=== PATIENT | male | born 2000 | race Caucasian/White ===

== ENCOUNTER 2020-12-12 01:08 | Outpatient (CLI) | payer BC, SELFPAY ==
--- NOTE | 2020-12-12 | DI.MRI_ITS ---
Exam(s) MR LOWER JOINT LT WO EXAM: MR LOWER JOINT LT WO CLINICAL HISTORY: LT KNEE PAIN,H/O PATELLAR SUBLUXATION AND MENISCAL TEAR,SPRAIN,S83.412A TECHNIQUE: Multiplanar multisequence MRI of the knee was performed. COMPARISON: No exams were available for comparison FINDINGS: EFFUSION: There is a large joint effusion. 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 There are septations but n o loose intra-articular body evident within this prominent Tello cyst. Some fluid seen in the opposit e-left side the popliteal fossa is actually in within the popliteus tendon sheath which is a componen t of the lateral collateral ligament complex. MARROW:There is no evidence of fracture, bone contusion, nor osteochondral defects.. There is a smal l benign-appearing bone lesion in the medial femoral condyle measuring 6 x 5 millimeters not associat ed with surrounding edema. This is either small bone cyst or possibly a small enchondroma. PATELLOFEMORAL COMPARTMENT: The quadriceps tendon is intact. The patellar ligament is intact. There is no significant thinning of the retropatellar cartilage. No evidence of fissure nor signific ant chondral defect. No osteochondral defect at this level.There is no intraosseous signal to sugges t recent patellar dislocation. There are no patellar retinacular tears. CRUCIATE LIGAMENTS: The anterior cruciate ligament is intact.The posterior cruciate ligament is intac t. MEDIAL COMPARTMENT/MEDIAL MENISCUS: There is tear in the posterior horn of the medial meniscus which has both horizontal and oblique components. No bucket-handle configuration. Signal abnormality extend s towards the root but there is no tear of the root of the posterior horn. Tear extends towards the a nterior horn which exhibits some extrusion. There are no flipped meniscal fragments.. There are no chondral defects, osteochondral defects, subarticular marrow edema, nor osteophytes evid ent. MEDIAL COLLATERAL LIGAMENT: Sprain signal. No full-thickness tear. LATERAL COMPARTMENT/LATERAL MENISCUS: There is no evidence of lateral meniscal tear.There are no natalie dral defects, osteochondral defects, subarticular marrow edema, nor osteophytes evident. ILIOTIBIAL BAND: Intact LATERAL COLLATERAL LIGAMENT COMPLEX: The fibular collateral ligament is intact. The biceps femoris t endon is intact.There is tenosynovitis of the popliteus tendon but no tear. Also no edema signal with in the popliteus muscle itself. IMPRESSION: 1. Medial meniscal tear is described above. No bucket-handle configuration nor flipped meniscal fragm ents. No overlying nor subjacent bone contusions. No osteochondral defects. There are no tears of the lateral meniscus. 2. Cruciate ligaments appear intact as does the iliotibial band. Sprain signal noted in the MCL 3. There is fluid in the popliteus tendon sheath component of the lateral collateral ligament complex but no tear for of this structure. The fibular collateral ligament and biceps femoris tendon compone nts of the LCL complex are intact. 4. Small benign-appearing bone lesion in the medial femoral condyle which is probably a small enchond julito. There is no surrounding bone edema to suggest that this is an aggressive process. 5. There is a large joint effusion and a prominent septated Tello cyst. The Tello cyst appears ruptur ed in that there is leakage of fluid down the surface of the medial gastrocnemius. DATA REPOSITORY:
== END 2020-12-12 01:28 ==
PROVIDERS: Visit Provider Nurse Practitioner
DX: M25.562 Pain in left knee (principal); S83.412A Sprain of medial collateral ligament of left knee, initial encounter; S83.242A Other tear of medial meniscus, current injury, left knee, initial encounter; M25.462 Effusion, left knee; M66.0 Rupture of popliteal cyst
CPT/HCPCS: 73721

== ENCOUNTER 2021-04-22 08:50 | Emergency (ER) | payer OTHER, SELFPAY ==
[2021-04-22 09:00] VITALS: BP 138/59; PULSE 73; TEMP 36.4; O2SAT 98
--- NOTE | 2021-04-22 09:06 | ED.GENADUL_ITS ---
Discharge Plan Disposition Patient Disposition: HOME Condition: Stable Discharge Details Clinical Impression: Pharyngitis Primary Care Provider: None,None ED Provider: Loida Little Home Meds and New Rx's Prescriptions: No Action No Known Home Meds RF: 0 Discharge Instructions Instructions: Pharyngitis (ED) Additional Instructions: Follow up with primary care provider in 3-5 days. Return to ED sooner if any worsening or concerns. Increase oral fluids. Please take Tylenol or Ibuprofen with food every 4-6 hours as needed for pain and swelling. We will call you comes back positive. Stand Alone Forms: Work Release Discharge Data Discharge Date/Time-TO BE ENTERED AT DEPARTURE: 04/22/21 09:33 Medical Decision Making Rapid strep is negative. Covid swab negative. Patient discharged in hemodynamically stable condition. HPI General Mode of arrival: ambulatory . Date/Time Provider Initiated Documentation: 04/22/21 08:55 . Limitations to Documentation: no limitations . Information obtained by: patient and RN notes reviewed . HPI Narrative: 21-year-old male presents to the ER chief complaint sore throat began yesterday. Denies any fever or trouble breathing. He is requesting a Covid swab. 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 No other associated symptoms. Related Data Home Medications Medication Instructions Recorded Confirmed Unknown [No Known Home Meds] 04/22/21 04/22/21 Allergies Allergy/AdvReac Type Severity Reaction Status Date / Time No Known Allergies Allergy Unverified 04/22/21 09:04 General Stated Complaint: Sorethroat WILTON: 5 Review of Systems ENT Ears, Nose, Mouth, and Throat: Reports as per HPI, Denies dysphagia, Reports sore throat, Denies throat swelling and Denies tongue swelling Gastrointestinal Gastrointestinal: Denies dysphagia Allergic/Immunologic Allergic/Immunologic: Denies throat swelling and Denies tongue swelling [facility] Social History Smoking/Tobacco Use Status: Never Smoking risk assessment performed?: Yes Alcohol Intake: never Drug use: Never Substance use type: does not use Do you feel safe at home: Yes Do you feel safe in your relationship?: Yes Exam Narrative Exam Narrative: Constitutional: Alert and oriented x3. Appears stated age. Normal body habitus. ENT: Bilateral TM's WNL, External ear normal to inspection, no mastoid TTP, swelling, or erythema, Nasal turbinates WNL, no nasal discharge. Normal dentition, Posterior pharynx beefy red, no exudate. Resp: Lungs clear to auscultation bilaterally, no wheezes, rales, or rhonchi. Course Vital Signs Vital signs: Vital Signs Temperature 36.4 C L 04/22/21 09:00 Pulse 73 04/22/21 09:00 Blood Pressure 138/59 L 04/22/21 09:00 Pulse Oximetry 98 04/22/21 09:00 Temperature 36.4 C L 04/22/21 09:00 Temperature Source Temporal Artery Scan 04/22/21 09:00 Pulse 73 04/22/21 09:00 Respiratory Effort Non-Labored 04/22/21 09:02 Blood Pressure 138/59 L 04/22/21 09:00 Blood Pressure Position Sitting 04/22/21 09:00 Pulse Oximetry 98 04/22/21 09:00 Oxygen Delivery Method Room Air 04/22/21 09:00 Oxygen Flow Rate 0 04/22/21 09:00 Pain Level 5 04/22/21 09:00
[2021-04-22 09:13] LABS: Source Nasal/Nares
[2021-04-22 10:05] LABS: COVID-19 PCR Negative (Negative)
== END 2021-04-22 09:33 | disposition home or self-care (01) ==
LOC: ER 09:13
PROVIDERS: Emergency Provider Registered Nurse Emergency
DX: J02.9 Acute pharyngitis, unspecified (principal); Z20.822 Contact with and (suspected) exposure to COVID-19; Z03.818 Encounter for observation for suspected exposure to other biological agents ruled out
CPT/HCPCS: 87635; 87880; 99282; 87081